=== PATIENT | female | born 1985 | race Caucasian/White ===

== ENCOUNTER 2017-08-25 07:10 | Emergency (ER) | payer MEDICAID ==
--- NOTE | 2017-08-25 08:02 | EDPHY ---
H & P Time Seen by Provider: 08/25/17 07:35 HPI/ROS: CHIEF COMPLAINT: Right wrist abscess HISTORY OF PRESENT ILLNESS: 32-year-old female presents with hidradenitis suppurativa presents with a right wrist abscess. Onset of tenderness and swelling to the right wrist a few days ago, gradually increasing since then. Unable to sleep well last night because of moderate pain. She squeezed the abscess and expressed some pus last night. No systemic symptoms; no fever, chills, nausea. She has a history of hidradenitis suppurativa, multiple prior surgeries and antibiotic resistance. She is allergic to doxycycline and Bactrim and states that clindamycin does not work. The only medication that works is rifampin. REVIEW OF SYSTEMS: Constitutional: No fever, no chills Eyes: No drainage ENT: No sore throat Respiratory: No cough, no shortness of breath Cardiac: No chest pain Gastrointestinal: no vomiting, no abdominal pain Genitourinary: no dysuria Musculoskeletal: No pain with wrist or elbow range of motion Neurological: no numbness, no weakness Psychiatric: Anxiety Past Medical/Surgical History: Hidradenitis suppurativa Anxiety Social History: Recently moved to [place] No PCP Smoking Status: Current every day smoker Physical Exam: General Appearance: Alert, pleasant, nontoxic Eyes: Pupils equal and round, no conjunctival pallor ENT, Mouth: Mucous membranes moist Neck: Normal inspection Respiratory: Lungs are clear to auscultation Cardiovascular: Regular rate and rhythm Gastrointestinal: Abdomen is soft and nontender Neurological: A&O, nonfocal, normal gait Skin: Warm and dry Extremities: Right wrist-4 cm abscess located on the dorsal aspect of the distal forearm, erythema present over the abscess, but not the surrounding skin ; wrist range of motion without pain; extensive scarring right axillary area Vascular: Radial pulse 2 + Psychiatric: Anxious Constitutional: Initial Vital Signs Temperature (C) 36.5 C 08/25/17 07:15 Heart Rate 90 08/25/17 07:15 Respiratory Rate 16 08/25/17 07:15 Blood Pressure 121/75 H 08/25/17 07:15 O2 Sat (%) 95 08/25/17 07:15 O2 Delivery Mode Room Air Allergies/Adverse Reactions: iron dextran complex Allergy (Verified 08/25/17 07:12) Penicillins Allergy (Verified 08/25/17 07:13) piperacillin [From Zosyn] Allergy (Verified 08/25/17 07:13) Sulfa (Sulfonamide Antibiotics) Allergy (Verified 08/25/17 07:13) tazobactam [From Zosyn] Allergy (Verified 08/25/17 07:13) cyclines Allergy (Uncoded 08/25/17 07:12) Home Medications: Medication Instructions Recorded Rifampin 300 mg PO BID #10 capsule 08/25/17 Medical Decision Making Procedures: Procedure: Abscess drainage. The patient's abscess was located on the right forearm. I obtained verbal consent from the patient to drain the abscess who was informed about the possibility of bleeding and pain. The abscess was incised with an 11 blade scalpel and a moderate amount of purulent drainage was expressed. Packing placed and a wound culture was sent. The patient tolerated the procedure well. The procedure was performed by myself. ED Course/Re-evaluation: This patient presents with a skin abscess, no evidence of joint involvement. Given history of multiple prior abscesses and antibiotic resistance, I will place her on a 5 day course of rifampin. A wound culture was sent. She will return in 2 days for wound recheck and probable packing removal. Departure - Departure Disposition: Home, Routine, Self-Care Clinical Impression: Abscess Condition: Good Instructions: Abscess (ED) Additional Instructions: Keep packing in place. Take antibiotics as prescribed. Return in 2 days for wound recheck and possible packing removal. You may followup in the ED or with the referral physician. Return for worsening symptoms or any concerns. Referrals: Gabe Dey MD [Medical Doctor] - As per Instructions (Call for an appointment.) Prescriptions: Rifampin 300 mg PO BID #10 capsule
[2017-08-25 08:32] VITALS: BP 116/87; PULSE 81; RESP 17; TEMP 98.3; O2SAT 92
== END 2017-08-25 08:20 | disposition home or self-care (01) ==
PROC: 0H9DXZZ Drainage of Right Lower Arm Skin, External Approach (ICD-10-PCS; principal; 2017-08-25)
DX: L02.413 Cutaneous abscess of right upper limb (principal); F17.200 Nicotine dependence, unspecified, uncomplicated

== ENCOUNTER 2017-08-27 10:31 | Emergency (ER) | payer MEDICAID ==
[2017-08-27 10:36] VITALS: RESP 18
--- NOTE | 2017-08-27 11:53 | EDPHY ---
H & P Time Seen by Provider: 08/27/17 10:47 HPI/ROS: CHIEF COMPLAINT: Abscess right wrist packing removed HISTORY OF PRESENT ILLNESS: 32-year-old female presents to the emergency department with re-evaluation of an abscess to her right wrist. The patient was here 2 days ago and had incision and drainage and packing placed. She has been taking rifampin as prescribed. She has a history of frequent MRSA infections. No fevers or chills. ROS: Denies numbness or tingling in her fingers, pain in her right elbow or axilla. Past Medical/Surgical History: Substance abuse Social History: Currently homeless Smoking Status: Current every day smoker Physical Exam: On examination the patient has wound to the dorsal aspect of her right wrist with packing present. Diffusely tender to palpate. There is no surrounding redness, cellulitis or signs of lymphangitis. Full range of motion of her right wrist. No palpable bony tenderness. Normal sensation to light touch with normal 2 point discrimination. Afebrile. Tearful. Constitutional: Initial Vital Signs Temperature (C) 36.2 C 08/27/17 10:32 Heart Rate 94 08/27/17 10:32 Respiratory Rate 18 08/27/17 10:32 Blood Pressure 123/91 H 08/27/17 10:32 O2 Sat (%) 97 08/27/17 10:32 O2 Delivery Mode Room Air Allergies/Adverse Reactions: iron dextran complex Allergy (Verified 08/27/17 10:32) Penicillins Allergy (Verified 08/27/17 10:32) piperacillin [From Zosyn] Allergy (Verified 08/27/17 10:32) Sulfa (Sulfonamide Antibiotics) Allergy (Verified 08/27/17 10:32) tazobactam [From Zosyn] Allergy (Verified 08/27/17 10:32) cyclines Allergy (Uncoded 08/25/17 07:12) Home Medications: Medication Instructions Recorded Rifampin 300 mg PO BID #10 capsule 08/25/17 MDM/Departure - MDM Procedures: Packing was easily removed. There is no further purulent drainage, however there was still significant amount of induration. Quarter-inch iodoform packing was replaced in the wound. Patient was also given Velcro wrist splint for comfort. She will continue her antibiotics as prescribed. - Depart Disposition: Home, Routine, Self-Care Clinical Impression: Encounter for wound re-check, Change or removal of wound packing Condition: Good Instructions: Abscess (ED) Additional Instructions: Keep packing in until follow-up in the emergency department in 2 days. Return to the emergency department sooner if you develop redness, red streaking up your arm, fever, or if you feel worse in any way. Continue your rifampin antibiotic as prescribed. Referrals: [facility],. [Clinic] - 1-2 days without fail
[2017-08-27 12:10] VITALS: BP 124/85; PULSE 69; TEMP 98.2; O2SAT 96
== END 2017-08-27 12:08 | disposition home or self-care (01) ==
DX: Z48.01 Encounter for change or removal of surgical wound dressing (principal); F17.200 Nicotine dependence, unspecified, uncomplicated
CPT/HCPCS: G0463